=== PATIENT | male | born 1980 | race Caucasian/White ===

== ENCOUNTER 2018-08-07 17:43 | Emergency (ER) | payer BC ==
[~2018-08-07] VITALS: Ht 185.4 cm; Wt 125.0 kg
[2018-08-07 17:47] VITALS: BP 130/76; TEMP 98.6
[2018-08-07] MEDS ORDERED: PERCOCET 325 MG1 TA2 PO (19:31)
[2018-08-07 20:05] VITALS: PULSE 92
== END 2018-08-07 20:07 | disposition home or self-care (01) ==
LOC: COL.ER 17:43
DX: S82.142A Displaced bicondylar fracture of left tibia, initial encounter for closed fracture (principal); S93.402A Sprain of unspecified ligament of left ankle, initial encounter; F32.9 Major depressive disorder, single episode, unspecified; W18.39XA Other fall on same level, initial encounter; X50.0XXA Overexertion from strenuous movement or load, initial encounter; Y92.009 Unspecified place in unspecified non-institutional (private) residence as the place of occurrence of the external cause
CPT/HCPCS: L1846

== ENCOUNTER → 2021-02-14 | Outpatient (CLI) | payer SELFPAY ==
[~2021-02-14] MED LIST: PERCOCET 325 MG1 TA2 PO
== END ==
LOC: COL.RAD 12:12
DX: M16.0 Bilateral primary osteoarthritis of hip (principal); M51.36 Other intervertebral disc degeneration, lumbar region